=== PATIENT | female | born 1945 | race Hispanic/Latino ===

== ENCOUNTER 2018-09-05 05:30 | Observation (INO) | payer MEDICARE ==
[2018-09-04 10:40] VITALS: BP 161/56
[2018-09-04 11:04] LABS: BASOPHILS % (AUTO) 0.3 % (0.0-5.0); EOSINOPHILS % (AUTO) 2.1 % (0.0-8.0); HEMATOCRIT 37.1 % (36-48); MEAN CORPUSCULAR HEMOGLOBIN 30.8 pg (27.0-33.0); MEAN CORPUSCULAR HGB CONC 32.3 g/dL (32.0-36.0); MEAN CORPUSCULAR VOLUME 95.2 fL (79-99); NEUTROPHILS % (AUTO) 55.6 % (40.0-77.0); NUCLEATED RED BLOOD CELLS 0.1 % (0.0-0.19); PLATELET COUNT (AUTO) 271 K/uL (130-400); RED BLOOD CELL COUNT(AUTO) 3.89 MIL/uL (4.00-5.50); RED CELL DISTRIBUTION WIDTH 13.4 % (11.0-15.5); WHITE BLOOD COUNT (AUTO) 9.6 K/uL (4.8-10.8)
[2018-09-04 11:14] LABS: CREATININE 1.4 mg/dL (0.5-1.5); POTASSIUM 4.5 mmol/L (3.5-5.1)
[~2018-09-05] VITALS: Ht 167.6 cm; Wt 62.8 kg
[2018-09-05] VITALS (25 sets, daily range): BP systolic 92–150; BP diastolic 43–73
[~2018-09-05 05:30] MED LIST: METF-446 PO
[2018-09-05] MEDS: CEFAZOLIN SODIUM 1 GM VIAL IVP SCH ×3 (06:00→12:30)
[2018-09-05] MEDS ORDERED: SODIUM CHLORIDE 0.9% 1000ML 1,000 ML IV ONE (06:36)
[2018-09-05] MEDS ORDERED: INS7030 SQ (06:57)
[2018-09-05] MEDS ORDERED: SIMV20TA6 PO (06:57)
[2018-09-05] MEDS ORDERED: LOSA1TAB42 PO (06:57)
[2018-09-05] MEDS ORDERED: INSU100V12 SQ (06:57)
--- NOTE | 2018-09-05 06:57 | NUR ---
VALUABLES: CLOTHING AND UPPER FULL DENTURES GIVEN TO CONSUELO HYDE. DAUGHTER STATED LEFT LOWER FULL DENTURES AT HOME.
[2018-09-05] MEDS ORDERED: LIDOCAINE PF 2% 5ML ABBOJECT ONE (08:04)
[2018-09-05] MEDS ORDERED: ONDANSETRON HCL 4 MG/2 ML VIAL ONE (08:05)
[2018-09-05] MEDS ORDERED: ROCURONIUM 10MG/1ML SYR 10 MG/ML ML ONE (08:06)
[2018-09-05] MEDS ORDERED: FENTANYL CITRATE PF 50 MCG/1 ML 2ML VIAL ONE ×2 (08:06→09:02)
[2018-09-05] MEDS ORDERED: PROPOFOL 10 MG/ML 20ML VIAL IV ONE (08:06)
[2018-09-05] MEDS ORDERED: KETOROLAC TROMETHAMINE 30MG/ML ONE (08:25)
[2018-09-05] MEDS ORDERED: EPHEDRINE SULFATE 50 MG/ML AMPULE ONE (08:28)
[2018-09-05] MEDS ORDERED: GLYCOPYRROLATE 1 MG/5 ML SYRINGE ONE (09:19)
[2018-09-05] MEDS ORDERED: NEOSTIGMINE 5MG/5ML SYR IV ONE (09:19)
[2018-09-05] MEDS ORDERED: ONDANSETRON HCL 4 MG/2 ML VIAL IVP PRN (11:15)
[2018-09-05] MEDS ORDERED: ACETAMINOPHEN-CODEINE 300/30MG TAB PO PRN (11:15)
[2018-09-05] MEDS ORDERED: PROMETHAZINE HCL 25 MG/ML 1ML AMPULE IM PRN (11:15)
[2018-09-05] MEDS ORDERED: IBUPROFEN 600 MG TABLET PO PRN (11:15)
[2018-09-05] MEDS ORDERED: BISACODYL 10 MG SUPP.RECT RC PRN (11:15)
[2018-09-05] MEDS: SODIUM CHLORIDE 0.9% 1000ML 1,000 ML IV SCH ×2 (11:34→18:29)
[2018-09-05] MEDS: MEPERIDINE-PF 75 MG/ML SYG IM PRN ×2 (11:35→18:28)
[2018-09-05] MEDS: PROMETHAZINE HCL 25 MG/ML 1ML AMPULE IM PRN ×2 (11:36→18:28)
[2018-09-05] MEDS: INSULIN HUMULIN R 100 UNIT/ML 3ML SQ SCH ×3 (12:40→21:34)
[2018-09-06] MEDS: SODIUM CHLORIDE 0.9% 1000ML 1,000 ML IV SCH ×3 (00:41→18:25)
[2018-09-06 04:00] VITALS: BP 98/55
[2018-09-06 05:30] LABS: HEMATOCRIT 31.1 % (36-48); MEAN CORPUSCULAR HEMOGLOBIN 31.5 pg (27.0-33.0); MEAN CORPUSCULAR HGB CONC 32.9 g/dL (32.0-36.0); MEAN CORPUSCULAR VOLUME 95.9 fL (79-99); PLATELET COUNT (AUTO) 222 K/uL (130-400); RED BLOOD CELL COUNT(AUTO) 3.25 MIL/uL (4.00-5.50); RED CELL DISTRIBUTION WIDTH 13.2 % (11.0-15.5); WHITE BLOOD COUNT (AUTO) 14.1 K/uL (4.8-10.8)
[2018-09-06] MEDS: INSULIN HUMULIN R 100 UNIT/ML 3ML SQ SCH ×4 (06:44→21:31)
[2018-09-06 07:58] VITALS: BP 98/63
--- NOTE | 2018-09-06 09:56 | NUR ---
[facility] met with pt and daughter Suad Spears [phone]. Pt's daughter Rosalba Quinn [phone] lives with pt and is provider 36hrs a wk thru [facility]. Pt uses walker and shower chair, has [facility] as well 2x a wk. Plan is for pt to dc [facility] with leonel Borjas. Addendum: 09/06/18 at 0958 by ABBIE CORDON Amended: Links added.
[2018-09-06] MEDS ORDERED: ACETAMINOPHEN-CODEINE 300/30MG TAB PO PRN (10:00)
[2018-09-06] MEDS ORDERED: BISACODYL 10 MG SUPP.RECT RC PRN (10:00)
[2018-09-06] MEDS ORDERED: HYDROCODONE/ACETAMINOPHEN 5/325 MG TAB PO PRN (10:00)
[2018-09-06] MEDS: IBUPROFEN 800 MG TAB PO SCH ×3 (10:00→23:47)
[2018-09-06] MEDS ORDERED: DOCUSATE SODIUM 100 MG CAP PO PRN (10:00)
[2018-09-06] MEDS: DOCUSATE SODIUM 100 MG CAP PO PRN ×2 (10:10→20:20)
[2018-09-06] MEDS: SIMETHICONE 80 MG TAB.CHEW PO PRN ×3 (10:10→20:20)
--- NOTE | 2018-09-06 10:10 | NUR ---
VÁSQUEZ VERBALIZED TO PATIENT BLADDER TRAINING, DEMONSTRATED TO PATIENT HOW TO DISCONNECT VÁSQUEZ FROM BAG AND HOW TO PLUG UP ÁVSQUEZ, DEMONSTRATED HOW TO EMPTY VÁSQUEZ BAG AND HOW TO MEASURE, PT VERBALIZED UNDERSTANDING; ANDRES-CARE PROVIDED; NASAL CANULA REMOVED, PT O2 SAT ON ROOM AIR IS 95-97%; SCDs REMOVED, TEDs ADJUSTED; PT OOB TO CHAIR, STEADY GAIT, NO ASSISTANCE REQUIRED, PT STATED WAS TIRED OF BEING IN BED, CALL LIGHT WITHIN REACH; RETURN DEMONSTRATION DONE WITH I.S.; POC DISCUSSED WITH PT, PT VERBALIZED UNDERSTANDING Addendum: 09/06/18 at 1402 by EVELINE PARADA RN Amended: Links added.
[2018-09-06] MEDS ORDERED: IBUPROFEN 800 MG TAB ONE (10:18)
[2018-09-06 11:34] VITALS: BP 105/51
--- NOTE | 2018-09-06 11:40 | NUR ---
ACTIVITY PT AMBULATED TO BATHROOM, WAS ABLE TO VOID 30mL OF CLEAR PALE YELLOW URINE, DID OWN ANDRES-CARE; PT AMBULATED BACK TO BED, STATED FELT LIKE RESTING AND TIRED OF SITTING IN CHAIR; POC DISCUSSED, PT VERBALIZED UNDERSTANDING
[2018-09-06] MEDS: CEFAZOLIN SODIUM 1 GM VIAL IVP SCH (12:11)
--- NOTE | 2018-09-06 14:30 | NUR ---
VÁSQUEZ PT AMBULATED TO BATHROOM, TRIED TO VOID BUT WAS UNABLE TO, DEMONSTRATED HOW TO UNPLUG CATHETER TO CHECK RESIDUAL FROM BLADDER, 400mL OF CLEAR PALE YELLOW URINE REMOVED, DEMONSTRATED ON CATHETER CARE; PT VERBALIZED UNDERSTANDING; PT AMBULATED BACK TO BED, WANTS TO REST A BIT MORE, NO DIZZINESS NOTED; PT WILL CALL WHEN READY TO AMBULATE IN HALLWAY
[2018-09-06 15:36] VITALS: BP 116/60
[2018-09-06 20:26] VITALS: BP 110/54
--- NOTE | 2018-09-06 22:00 | NUR ---
Up to the bathroom, voided 100ml. and emptied 500ml from catheter, connected to mckeon bag at bedside. Addendum: 09/06/18 at 2215 by VIKTORIA MELENDEZ RN Amended: Links added.
[2018-09-07 00:28] VITALS: BP 124/57
[2018-09-07 05:30] VITALS: BP 114/57
[2018-09-07] MEDS: IBUPROFEN 800 MG TAB PO SCH ×3 (06:16→18:41)
[2018-09-07] MEDS: INSULIN HUMULIN R 100 UNIT/ML 3ML SQ SCH ×2 (07:13→12:07)
[2018-09-07 07:22] VITALS: BP 134/61
--- NOTE | 2018-09-07 08:05 | NUR ---
THALIA WHILE IN BED, ASSISTED PT TO REMOVE CATHETER FROM BAG AND PLUG CATHETER TO BEGIN BLADDER TRAINING; PT STRUGGLES WITH STRENGTH SO WILL NEED ASSISTANCE AT HOME WITH BLADDER TRAINING Addendum: 09/07/18 at 1342 by EVELINE PARADA RN Amended: Links added.
[2018-09-07] MEDS: DOCUSATE SODIUM 100 MG CAP PO PRN (09:04)
[2018-09-07] MEDS: SIMETHICONE 80 MG TAB.CHEW PO PRN ×3 (09:05→18:40)
[2018-09-07] MEDS: SODIUM CHLORIDE 0.9% 1000ML 1,000 ML IV SCH ×2 (09:06→19:05)
[2018-09-07 11:39] VITALS: BP 143/62
[2018-09-07] MEDS: CEFAZOLIN SODIUM 1 GM VIAL IVP SCH (12:30)
[2018-09-07 15:45] VITALS: BP 149/65
--- NOTE | 2018-09-07 19:25 | NUR ---
DISCHARGE PT STABLE, NO PAIN, NO COMPLAINTS; PT LEFT UNIT, VIA WHEELCHAIR, ACCOMPANIED BY DEB MATA AND FAMILY MEMBERS CARRYING ALL PERSONAL BELONGINGS, INSTRUCTIONS, AND PRESCRIPTION; EXPLAINED TO FAMILY SPECIFICALLY HOW TO DRAIN AND CARE FOR VÁSQUEZ ALONG WITH ALL NECESSITIES REQUIRED TO CARE FOR VÁSQUEZ, ALL VERBALIZED UNDERSTANDING; PT LEFT FACILITY IN PERSONAL VEHICLE
== END 2018-09-07 19:25 | disposition home or self-care (01) ==
LOC: DAH 05:30 → WSH 05:31 → DAH 05:31
PROVIDERS: ADMIT Obstetrics & Gynecology; ATTEND Obstetrics & Gynecology
DX: N81.3 Complete uterovaginal prolapse (principal); Z79.899 Other long term (current) drug therapy; Z90.710 Acquired absence of both cervix and uterus
CPT/HCPCS: 36415 ×2; 57260; 80048; 82948 ×11; 85025; 85027; 86850; 86900; 86901; 88302; 96372 ×3; A4218; A4311; A4351; A4354; A4510; A4600; A4606; G0378 ×62; J0690; J1815 ×7; J1885; J2001; J2175 ×2; J2405; J2550 ×2; J2704; J2710; J3010 ×2; J3490 ×2; J7030 ×3